=== PATIENT | female | born 1945 | race African-American/Black ===

== ENCOUNTER 2018-05-20 10:43 | Outpatient (CLI) | payer MEDICARE | END 2018-05-20 10:44 | disposition home or self-care (01) | LOC: BICMAMMO 10:43 | PROVIDERS: ATTEND Internal Medicine | DX: Z12.31 Encounter for screening mammogram for malignant neoplasm of breast (principal); Z13.820 Encounter for screening for osteoporosis; M85.859 Other specified disorders of bone density and structure, unspecified thigh; N63.10 Unspecified lump in the right breast, unspecified quadrant; N64.89 Other specified disorders of breast; R92.1 Mammographic calcification found on diagnostic imaging of breast | CPT/HCPCS: 77063; 77067; 77080 ==

== ENCOUNTER 2018-05-25 09:06 | Outpatient (CLI) | payer MEDICARE | END 2018-05-25 09:07 | disposition home or self-care (01) | LOC: BICULT 09:06 | PROVIDERS: ATTEND Internal Medicine | DX: N63.10 Unspecified lump in the right breast, unspecified quadrant (principal); N60.01 Solitary cyst of right breast ==

== ENCOUNTER 2021-04-03 07:55 | Outpatient (CLI) | payer MEDICARE | END 2021-04-03 07:56 | disposition home or self-care (01) | LOC: NM 07:55 | PROVIDERS: ATTEND Internal Medicine Endocrinology, Diabetes & Metabolism | DX: E05.90 Thyrotoxicosis, unspecified without thyrotoxic crisis or storm (principal) | CPT/HCPCS: 78014; A9516 ==

== ENCOUNTER 2022-03-06 07:27 | Outpatient (CLI) | payer MEDICARE | END 2022-03-06 07:28 | disposition home or self-care (01) | LOC: NM 07:27 | PROVIDERS: ATTEND Internal Medicine Endocrinology, Diabetes & Metabolism | DX: E05.90 Thyrotoxicosis, unspecified without thyrotoxic crisis or storm (principal) | CPT/HCPCS: 78014; A9516 ==

== ENCOUNTER 2022-06-03 12:23 | Outpatient (CLI) | payer OTHER | END 2022-06-03 12:24 | disposition home or self-care (01) | LOC: NM 12:23 | PROVIDERS: ATTEND Internal Medicine Endocrinology, Diabetes & Metabolism | DX: E05.90 Thyrotoxicosis, unspecified without thyrotoxic crisis or storm (principal) | CPT/HCPCS: 79005; A9517 ×2 ==

== ENCOUNTER 2022-12-26 08:39 | Outpatient (CLI) | payer OTHER | END 2022-12-26 08:40 | disposition home or self-care (01) | LOC: BICMAMMO 08:39 | PROVIDERS: ATTEND Family Medicine | DX: Z12.31 Encounter for screening mammogram for malignant neoplasm of breast (principal); R92.1 Mammographic calcification found on diagnostic imaging of breast | CPT/HCPCS: 77063; 77067 ==

== ENCOUNTER 2023-08-27 10:32 | Outpatient (CLI) | payer OTHER | END 2023-08-27 10:33 | disposition home or self-care (01) | LOC: ULT 10:32 | PROVIDERS: ATTEND Family Medicine | DX: N18.32 Chronic kidney disease, stage 3b (principal); N28.1 Cyst of kidney, acquired | CPT/HCPCS: 36415; 76770; 80053; 81001; 83970; 84550 ==

== ENCOUNTER 2023-12-30 08:49 | Outpatient (CLI) | payer OTHER | END 2023-12-30 08:50 | disposition home or self-care (01) | LOC: BICMAMMO 08:49 | PROVIDERS: ATTEND Family Medicine | DX: Z12.31 Encounter for screening mammogram for malignant neoplasm of breast (principal); R09.89 Other specified symptoms and signs involving the circulatory and respiratory systems; N63.13 Unspecified lump in the right breast, lower outer quadrant | CPT/HCPCS: 71046; 77063; 77067 ==